=== PATIENT | female | born 1955 | race Caucasian/White ===

== ENCOUNTER → 2019-03-09 | Outpatient (CLI) | payer OTHER ==
[2015-12-14 15:25] VITALS: BMI 27.9
[~2019-03-09] MED LIST: ASPI-764 PO; GADOBENATE 529MG/1ML 15ML VIAL IVP ONE; HYDR-653 PO; NAPR220C12 PO; RANI-54 PO; ZANTAC
--- NOTE | 2019-03-09 15:38 | RADIOLOGY IMAGING REPORT ---
FACILITY: [facility] PATIENT NAME: Liz Mendoza : 1955 MR: [id number] V: [id number] EXAM DATE: ORDERING PHYSICIAN: ANNA WHITFIELD TECHNOLOGIST: Location: [facility] [place] Patient: Liz Mendoza : 1955 Visit/Account:[id number] Date of Sevice: 03/09/2019 Study: MRI of the cervical spine without and with gadolinium contrast Indication: Demyelinating disease. The left-sided weakness, chronic fatigue, perching incontinence of urine Contrast utilized:15 mL MultiHance gadolinium contrast Comparison study:None Technique: Multiplanar MRI sequences were obtained through the cervical spine without and with the us e of gadolinium contrast. Alignment:There is normal alignment of the cervical vertebrae. Cervical vertebrae:There is no abnormal signal identified within the cervical vertebrae. Cervical spinal cord:The cervical spinal cord is unremarkable. Specifically, there is no evidence of demyelinating lesion identified within the cervical spinal cord. There is no evidence of Chiari I malformation. Paraspinal soft tissues:Unremarkable Disc spaces: C2/3:Unremarkable C3/4: At this level, there is a minimal diffuse disc bulge. There is mild right and no significant le ft neural foraminal stenosis. There is no significant spinal stenosis. C4/5: At this level, there is no significant disc pathology. There is bilateral facet hypertrophy. Th ere is mild bilateral neural foraminal stenosis. There is no significant spinal stenosis present. C5/6: At this level, there is no significant disc pathology. There is bilateral facet hypertrophy. Th ere is mild bilateral neural foraminal stenosis. There is no significant spinal stenosis. C6/7:Unremarkable C7/T1:Unremarkable There is no significant contrast enhancement identified within the cervical spine or spinal cord. IMPRESSION: No abnormal signal or contrast enhancement identified within the cervical spinal cord. Th ere is mild cervical disc pathology and spondylopathy present as described. Report Dictated By: Nino Concepcion at 03/09/2019 3:26 PM Report E-Signed By: Nino Concepcion at 03/09/2019 3:33 PM WSN:[id number]
--- NOTE | 2019-03-09 15:44 | RADIOLOGY IMAGING REPORT ---
FACILITY: [facility] PATIENT NAME: Liz Mendoza : 1955 MR: [id number] V: [id number] EXAM DATE: ORDERING PHYSICIAN: ANNA WHITFIELD TECHNOLOGIST: Location: [facility] Patient: Liz Mendoza : 1955 Visit/Account:[id number] Date of Sevice: 03/09/2019 Study: MRI of the brain without and with gadolinium contrast. Indication: Rule out demyelinating disease Comparison study: None Contrast used: 15 mL MultiHance gadolinium contrast Technique: Multiplanar MRI sequences were obtained through the brain before and after the administrat ion of gadolinium contrast. The examination demonstrates no evidence of acute intracranial hemorrhage. There is no evidence of ex tra-axial collection or hydrocephalus. There are scattered small areas of high T2-weighted signal present within the supratentorial white ma tter. Many of these lesions are located in the periventricular white matter. There is also a lesion p resent within the left cerebral peduncle. These lesions are nonspecific in appearance but would be co mpatible with an inflammatory demyelinating process. There is no abnormal contrast enhancement associ ated with these lesions. The pituitary gland is unremarkable in appearance. There is no evidence of abnormality of the pineal gland. A diffusion-weighted sequence was performed and demonstrates no evidence of active ischemia. There is no evidence of active infarct The orbits are unremarkable. The paranasal sinuses are unremarkable Following the administration of gadolinium contrast, there is no abnormal intracranial contrast enhan cement. IMPRESSION: Numerous small areas of high T2-weighted signal present within the central white matter o f the supratentorial brain as well as the left cerebral peduncle. These areas are nonspecific but wou ld be compatible with a inflammatory demyelinating process. There is no evidence of abnormal contrast enhancement associated with these lesions. There is no evid ence of active ischemia. Report Dictated By: Nino Concepcion at 03/09/2019 3:33 PM Report E-Signed By: Nino Concepcion at 03/09/2019 3:38 PM WSN:[id number]
== END ==
LOC: MRI 00:29
PROVIDERS: ATTEND Physician Assistant Medical
DX: G37.9 Demyelinating disease of central nervous system, unspecified (principal); R53.1 Weakness; R53.82 Chronic fatigue, unspecified; N39.41 Urge incontinence
CPT/HCPCS: 70553; 72156; A9577